=== PATIENT | male | born 1995 | race Caucasian/White ===

== ENCOUNTER 2020-10-04 16:26 | Emergency (ER) | payer SELFPAY ==
[~2020-10-04] VITALS: Ht 170.2 cm; Wt 59.0 kg
--- NOTE | 2020-10-04 16:58 | NUR ---
PT DOES NOT WANT TO GIVE URINE. MADE AWARE
[2020-10-04 17:13] LABS: BASOPHILS % (AUTO) 0.6 % (0.0-2.0); HEMATOCRIT 39 % (39-51); HEMOGLOBIN 13.1 g/dL (13.5-17.5); LYMPHOCYTES # (AUTO) 3.5 K/uL (0.8-4.8); LYMPHOCYTES % (AUTO) 48.5 % (20.0-44.0); MEAN CORPUSCULAR HGB CONC 34 g/dl (31.0-36.0); MEAN CORPUSCULAR VOLUME 85 fL (80-96); MONOCYTES # (AUTO) 0.8 K/uL (0.1-1.30); MONOCYTES % (AUTO) 10.5 % (2.0-12.0); NEUTROPHILS # (AUTO) 2.9 K/uL (1.8-8.9); NEUTROPHILS % (AUTO) 39.4 % (43.0-81.0); PLATELET COUNT (AUTO) 259 K/uL (150-450); RED BLOOD CELL COUNT(AUTO) 4.58 MIL/uL (4.5-6.0); WHITE BLOOD COUNT (AUTO) 7.3 K/uL (4.3-11.0)
[2020-10-04 18:15] LABS: CALCIUM, SERUM 8.4 mg/dL (8.5-10.1); CREATININE 0.8 mg/dL (0.6-1.3); POTASSIUM 3.3 mmol/L (3.5-5.1)
[2020-10-04 18:18] LABS: ALBUMIN 3.5 g/dL (3.4-5.0); BILIRUBIN,DIRECT 0.1 mg/dL (0.0-0.2); BILIRUBIN,TOTAL 0.3 mg/dL (0.2-1.0); TOTAL PROTEIN, SERUM 6.8 g/dL (6.4-8.2)
--- NOTE | 2020-10-04 18:26 | NUR ---
CALLED [facility] [phone] MARIANA TO CALL US BACK.
--- NOTE | 2020-10-04 18:30 | NUR ---
[facility] CALLED HARSHAD MACEDO 20 MINS.
--- NOTE | 2020-10-04 19:37 | NUR ---
Patient discharged to home in stable condition. Written and verbal after care instructions given. Patient verbalizes understanding of instruction.
[2020-10-04 19:44] VITALS: BP 140/80
== END 2020-10-04 19:44 | disposition home or self-care (01) ==
LOC: ER 16:52
DX: E10.649 Type 1 diabetes mellitus with hypoglycemia without coma (principal)
CPT/HCPCS: 36415; 80048-TC; 80076-TC; 82962-TC; 83690-TC; 84484-TC; 85025-TC